=== PATIENT | female | born 1960 | race Caucasian/White ===

== ENCOUNTER 2019-02-01 12:28 | Emergency (ER) | payer OTHER ==
[2019-02-01] MEDS ORDERED: Sodium Chloride 0.9% 10 ML Syringe FLUSH PRN (13:34)
[2019-02-01] MEDS ORDERED: Sodium Chloride 0.9% 1,000 ML IV ONE (13:35)
[2019-02-01] MEDS ORDERED: Ampicillin/Sulbactam Na 3 GM in Sodium Chloride 0.9% 100 ML IV ONE (13:36)
[2019-02-01] MEDS ORDERED: Ketorolac 30 MG/ML SDV IVPUSH ONE (13:36)
--- NOTE | 2019-02-01 13:58 | EDM.PDOC ---
ED HPI GENERAL MEDICAL PROBLEM - General Chief Complaint: Bite:Animal, Insect Stated Complaint: DOG BITES RIGHT HAND Time Seen by Provider: 02/01/19 13:00 Source of Information: Reports: Patient History Limitations: Reports: No Limitations - History of Present Illness INITIAL COMMENTS - FREE TEXT/NARRATIVE: Tamela is a 58 year old female who presents to the ED today with increasing right hand swelling and pain since being bit by her own dog to right hand yesterday. Patient is right hand dominant. She denies any fever/chills/body aches or other complaints. DT is up to date. Patient denies any other injuries. Onset: Gradual Duration: Hour(s): (16) 7 Pain Score (Numeric/FACES): 7 - Related Data Allergies Allergy/AdvReac Type Severity Reaction Status Date / Time No Known Allergies Allergy Verified 02/01/19 13:04 Home Meds: Home Meds Aspirin 81 mg PO DAILY 02/01/19 [History] amLODIPine Besylate [Amlodipine Besylate] 5 mg PO DAILY 02/01/19 [History] hydroCHLOROthiazide [Hydrochlorothiazide] 25 mg PO DAILY 02/01/19 [History] Past Medical History Cardiovascular History: Reports: Hypertension Musculoskeletal History: Reports: Back Pain, Chronic - Past Surgical History Female Surgical History: Reports: Hysterectomy Social & Family History - Tobacco Use Smoking Status *Q: Current Every Day Smoker Years of Tobacco use: 35 Packs/Tins Daily: 1 ED ROS GENERAL - Review of Systems Review Of Systems: ROS reveals no pertinent complaints other than HPI. ED EXAM, ANIMAL BITE - Physical Exam Exam: See Below Exam Limited By: No Limitations General Appearance: Alert, WD/WN, No Apparent Distress Respiratory/Chest: No Respiratory Distress Cardiovascular: Normal Peripheral Pulses, Regular Rate, Rhythm Back Exam: Normal Inspection Extremities: Normal Inspection Neurological: Alert, Oriented, CN II-XII Intact Psychiatric: Normal Affect Skin Exam: Other (Right hand is edematous, 1 cm bite analilia to right dorsal aspect , along 4th mid metacarpal region, another 1 cm puncture bite analilia to first metacarpal region on bennett aspect,no drainage, strength in all 5 digits intact , unable to make a fist. cap refill intact) Lymphatic: No Adenopathy Course - Vital Signs Last Recorded V/S: Last Vital Signs Temp 35.8 C 02/01/19 13:10 Pulse 72 02/01/19 15:06 Resp 12 02/01/19 15:06 BP 138/78 02/01/19 15:06 Pulse Ox 97 02/01/19 15:06 Tamela is a 58 year old female, presents today with a dog bite to right hand that occurred last night her own dog who is vaccinated. Please refer to HPI and focused exam. Patient hemodynamically stable here, afebrile, blood work with normal white count, elevated neutrophil count, elevated CRP, potassium low at 3. Replaced with oral. Patient given Toradol for pain, some relief, more so with Dilaudid, given IV Unasyn here. Since patient's arrival swelling has improved as has ROM with ability to make more of a fist, feel appropriate to send home on Augmentin and [place] for pain with low threshold for return which I discussed with patient and her in detail. Patient to follow up with PCP later this week if improving. Patient discharged in stable condition. Of note, xray of hand with no acute osseous abnormality. - Orders/Labs/Meds Orders: Active Orders 24 hr Category Date Time Status Peripheral IV Care [RC] . DIRECTED Care 02/01/19 13:35 Active Sodium Chloride 0.9% [Saline Flush] Med 02/01/19 13:34 Active 10 ml FLUSH ASDIRECTED PRN Peripheral IV Insertion Adult [OM.PC] Routine Oth 02/01/19 13:34 Ordered Medication Orders Sodium Chloride (Saline Flush) 10 ml FLUSH ASDIRECTED PRN PRN Reason: Keep Vein Open Labs: Laboratory Tests 02/01/19 02/01/19 Range/Units 13:35 13:58 WBC 9.1 (4.5-11.0) K/uL RBC 4.68 (3.30-5.50) M/uL Hgb 14.7 (12.0-15.0) g/dL Hct 44.1 (36.0-48.0) % MCV 94 (80-98) fL MCH 31 (27-31) pg MCHC 33 (32-36) % Plt Count 181 (150-400) K/uL Neut % (Auto) 67 H (36-66) % Lymph % (Auto) 21 L (24-44) % [place] % (Auto) 9 H (2-6) % Eos % (Auto) 3 (2-4) % Baso % (Auto) 1 (0-1) % Sodium 140 (140-148) mmol/L Potassium 3.0 L (3.6-5.2) mmol/L Chloride 100 (100-108) mmol/L Carbon Dioxide 25 (21-32) mmol/L Anion Gap 18.0 H (5.0-14.0) mmol/L BUN 13 (7-18) mg/dL Creatinine 0.7 (0.6-1.0) mg/dL Est Cr Clr Drug Dosing 93.78 mL/min Estimated GFR (MDRD) > 60 (>60) Glucose 103 (74-106) mg/dL Calcium 8.8 (8.5-10.1) mg/dL Total Bilirubin 0.4 (0.2-1.0) mg/dL AST 33 (15-37) U/L ALT 51 (12-78) U/L Alkaline Phosphatase 82 (46-116) U/L C-Reactive Protein 2.30 H (0.0-0.3) mg/dL Total Protein 7.0 (6.4-8.2) g/dL Albumin 3.8 (3.4-5.0) g/dL Globulin 3.2 (2.3-3.5) g/dL Albumin/Globulin Ratio 1.2 (1.2-2.2) Meds: Medications Generic Name Dose Route Start Last Admin Trade Name Freq PRN Reason Stop Dose Admin Sodium Chloride 10 ml 02/01/19 13:34 Saline Flush FLUSH ASDIRECTED PRN Keep Vein Open Discontinued Medications Generic Name Dose Route Start Last Admin Trade Name Freq PRN Reason Stop Dose Admin Hydromorphone HCl 0.5 mg 02/01/19 15:09 02/01/19 15:20 Dilaudid IVPUSH 02/01/19 15:10 0.5 mg ONETIME ONE Administration Ampicillin Sodium/Sulbactam 100 mls @ 200 mls/hr 02/01/19 13:36 02/01/19 14: 28 Sodium 3 gm/ Sodium Chloride IV 02/01/19 14:05 200 mls/hr ONETIME ONE Administration Sodium Chloride 1,000 mls @ 1,000 mls/hr 02/01/19 13:35 02/01/19 14:26 Normal Saline IV 02/01/19 14:34 1,000 mls/hr .BOLUS ONE Administration Ketorolac Tromethamine 30 mg 02/01/19 13:36 02/01/19 14:26 Toradol IVPUSH 02/01/19 13:37 30 mg ONETIME ONE Administration Potassium Chloride 40 meq 02/01/19 14:41 02/01/19 15:05 Klor-Con M20 PO 02/01/19 14:42 40 meq ONETIME ONE Administration Departure - Departure Time of Disposition: 16:30 Disposition: Home, Self-Care 01 Condition: Good Clinical Impression: Cellulitis Qualifiers: Site of cellulitis: extremity Site of cellulitis of extremity: upper extremity Laterality: right Qualified Code(s): L03.113 - Cellulitis of right upper limb Dog bite Qualifiers: Encounter type: initial encounter Qualified Code(s): W54.0XXA - Bitten by dog, initial encounter - Discharge Information Instructions: Cellulitis, Adult, [id number], Animal Bite, Adult, [id number] Referrals: PCP,None [Primary Care Provider] - Forms: ED Department Discharge Additional Instructions: Start Augmentin at 6 PM and take as directed. Ibuprofen 600 mg every 6 hours for pain and swelling. Percocet for severe pain, this is a narcotic, do not drive if you take it. Return with any worsening symptoms. If you continue to improve follow up in clinic for re-evaluation next week. I would recommend yogurt or a good probiotic such as Culturelle (can be found over the counter) to prevent stomach upset and diarrhea from the antibiotic. - My Orders Last 24 Hours: My Active Orders 02/01/19 13:34 Sodium Chloride 0.9% [Saline Flush] 10 ml FLUSH ASDIRECTED PRN Peripheral IV Insertion Adult [OM.PC] Routine 02/01/19 13:35 Peripheral IV Care [RC] . DIRECTED - Assessment/Plan Last 24 Hours: My Active Orders 02/01/19 13:34 Sodium Chloride 0.9% [Saline Flush] 10 ml FLUSH ASDIRECTED PRN Peripheral IV Insertion Adult [OM.PC] Routine 02/01/19 13:35 Peripheral IV Care [RC] . DIRECTED
[2019-02-01] MEDS ORDERED: Potassium Chloride 20 MEQ Tab.ER PO ONE (14:41)
--- NOTE | 2019-02-01 14:44 | CRLCR ---
HISTORY: Dog bite. Swelling. Limited range of motion. TECHNIQUE: Right hand 3 views. COMPARISON: None. FINDINGS: Soft tissue swelling in the dorsum of the hand. No erosions. 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 Mild degenerative arthrosis of the 1st carpometacarpal joint. Degenerative arthrosis at multiple IP joints, moderately advanced at the index finger DIP joint. IMPRESSION: Soft tissue swelling. No acute bone abnormality. Dictated by Petey Larson MD @ Feb 01 2019 2:41PM Signed by Dr. Petey Larson @ Feb 01 2019 2:43PM
[2019-02-01] MEDS ORDERED: HYDROmorphone 0.5 MG/0.5 ML Syringe IVPUSH ONE (15:09)
== END 2019-02-01 16:10 | disposition home or self-care (01) ==
LOC: JP.ED 12:28
DX: S61.451A Open bite of right hand, initial encounter (principal); L03.113 Cellulitis of right upper limb; I10 Essential (primary) hypertension; F17.210 Nicotine dependence, cigarettes, uncomplicated; Z79.82 Long term (current) use of aspirin; Z79.899 Other long term (current) drug therapy; W54.0XXA Bitten by dog, initial encounter
CPT/HCPCS: 36415; 73130; 80053; 85025; 86140; 96361; 96365; 96375; 99283; A9270; J0295; J1170; J1885; J7030

== ENCOUNTER 2019-02-03 10:04 | Emergency (ER) | payer OTHER ==
[2019-02-03] MEDS ORDERED: cefTRIAXone 1 GM Vial IM ONE (11:11)
--- NOTE | 2019-02-03 11:14 | EDM.PDOC ---
ED HPI GENERAL MEDICAL PROBLEM - General Chief Complaint: Wound Recheck Stated Complaint: DOG BITE RIGHT HAND (SEEN ER ON SUNDAY) Time Seen by Provider: 02/03/19 10:50 Source of Information: Reports: Patient History Limitations: Reports: No Limitations - History of Present Illness INITIAL COMMENTS - FREE TEXT/NARRATIVE: Alert 58-year-old right-handed female presents to ER for recheck of animal bite involving her hand. Patient had animal bite 4 days ago she was seen in the ER 2 days ago regarding the bite was noted to have an infection secondary to animal bite right hand. Imaging of the right hand was completed and reviewed by myself along with reviewing radiology report no fractures or foreign body noted. Patient was given a dose of IV antibiotics and started on Augmentin. Anti- inflammatories and pain medications offered. Patient states the redness and swelling in the dorsum of the hand is significantly improved. She was confused regarding the drainage as it was noted that if she had increased drainage or pus from the rounder increased redness she should return to the ER for evaluation. Patient states the redness has extended beyond her wrist and is now a third of the way up her dorsal forearm. Patient states the swelling is significant improved involving her hand. Drainage is then occurring. She's been taking her medications as directed without any difficulties. Patient denies any fever, chills or sweats or systemic symptoms. Patient is fairly confused regarding her wound care treatment and management she's been applying ice and states that it does not seem to be helping her swelling and pain. Right Hand Pain Score (Numeric/FACES): 5 - Related Data Allergies Allergy/AdvReac Type Severity Reaction Status Date / Time No Known Allergies Allergy Verified 02/03/19 10:26 Home Meds: Home Meds Aspirin 81 mg PO DAILY 02/01/19 [History] amLODIPine Besylate [Amlodipine Besylate] 5 mg PO DAILY 02/01/19 [History] hydroCHLOROthiazide [Hydrochlorothiazide] 25 mg PO DAILY 02/01/19 [History] Acetaminophen/oxyCODONE [Percocet 325-5 MG] 1 tab PO Q6H 02/03/19 [History] Amoxicillin/Clavulanate K [Augmentin 875-125 MG] 1 tab PO BID 02/03/19 [History] Naproxen 1 tab PO ASDIRECTED 02/03/19 [History] Past Medical History Cardiovascular History: Reports: Hypertension Musculoskeletal History: Reports: Back Pain, Chronic - Past Surgical History Female Surgical History: Reports: Hysterectomy Social & Family History - Tobacco Use Smoking Status *Q: Light Tobacco Smoker Years of Tobacco use: 35 Packs/Tins Daily: 0.5 - Recreational Drug Use Recreational Drug Use: No ED ROS GENERAL - Review of Systems Review Of Systems: ROS reveals no pertinent complaints other than HPI. ED EXAM, SKIN/RASH Exam: See Below Exam Limited By: No Limitations General Appearance: Alert, WD/WN, No Apparent Distress Ears: Normal External Exam, Hearing Grossly Normal Nose: Normal Inspection, Normal Mucosa Throat/Mouth: Normal Inspection, Normal Lips, Normal Voice, No Airway Compromise Head: Normocephalic Neck: Normal Inspection, Supple, Full Range of Motion Respiratory/Chest: No Respiratory Distress, Lungs Clear, Normal Breath Sounds Cardiovascular: Normal Peripheral Pulses, Regular Rate, Rhythm Extremities: Normal Inspection (Left Hand Normal Exam), Normal Capillary Refill , Limited Range of Motion (Right Decrease ROM of fingers due to swelling and pain. ), Increased Warmth (Right Hand: swelling with 4-5 open draining seropurulent puncture wounds. Point of most severe pain involving puncture wound dorsum right hand between 4-5 Metacarpal bones. No increased pain with ROM right hand fingers and wrist ) Neurological: Alert, Oriented, CN II-XII Intact, Normal Cognition, Memory Loss Recent Events Psychiatric: Normal Affect, Normal Mood Location, Skin: Upper Extremity, Right Associated features: Warmth, Tenderness, Swelling, Induration, Inflammation, Weeping Course - Vital Signs Last Recorded V/S: Last Vital Signs Temp 34.7 C L 02/03/19 10:23 Pulse 68 02/03/19 11:23 Resp 13 02/03/19 11:23 BP 115/80 02/03/19 11:23 Pulse Ox 96 02/03/19 11:23 - Orders/Labs/Meds Orders: Active Orders 24 hr Category Date Time Status Splinting [RC] ASDIRECTED Care 02/03/19 11:11 Active Meds: Medications Discontinued Medications Generic Name Dose Route Start Last Admin Trade Name Freq PRN Reason Stop Dose Admin Ceftriaxone Sodium 1 gm/ 0 gm 02/03/19 11:30 02/03/19 11:34 Lidocaine HCl 2.1 ml IM 02/03/19 11:31 1 inj ONETIME ONE Administration Departure - Departure Time of Disposition: 12:00 Disposition: Home, Self-Care 01 Condition: Good Clinical Impression: Cellulitis Qualifiers: Site of cellulitis: extremity Site of cellulitis of extremity: upper extremity Laterality: right Qualified Code(s): L03.113 - Cellulitis of right upper limb Dog bite Qualifiers: Encounter type: initial encounter Qualified Code(s): W54.0XXA - Bitten by dog, initial encounter - Discharge Information Instructions: Cellulitis, Adult, Animal Bite, Adult Referrals: PCP,None [Primary Care Provider] - Forms: ED Department Discharge - Problem List & Annotations (1) Cellulitis SNOMED Code(s): 537876635 Code(s): L03.90 - CELLULITIS, UNSPECIFIED Status: Acute Current Visit: Yes Qualifiers: Site of cellulitis: extremity Site of cellulitis of extremity: upper extremity Laterality: right Qualified Code(s): L03.113 - Cellulitis of right upper limb (2) Dog bite SNOMED Code(s): 303903452, 080141761 Code(s): W54.0XXA - BITTEN BY DOG, INITIAL ENCOUNTER Status: Acute Current Visit: Yes Qualifiers: Encounter type: initial encounter Qualified Code(s): W54.0XXA - Bitten by dog, initial encounter - My Orders Last 24 Hours: My Active Orders 02/03/19 11:11 Splinting [RC] ASDIRECTED - Assessment/Plan Last 24 Hours: My Active Orders 02/03/19 11:11 Splinting [RC] ASDIRECTED Plan: 1. Continue Augmentin as directed with food until gone. 2. Ibuprofen 600-800mg every 6 hours with food for pain and swelling. 3. Leave splint on during the day and night per comfort to prevent spread of infection into deep spaces of hand. 4. Remove splint 2-3 times daily and soak in warm soapy water or warm water with Epsom salt to promote drainage of puncture wounds and healing. 5. If wounds are drainage apply topical bacitracin, Aquaphor or Vaseline and bandage to prevent worsening or reinfection due to open wounds. 6. Tylenol as needed for mild pain or Percocet (previously prescribed) for moderate to severe pain. 7. Redness, swelling and pain should be significantly improved in 5 days and small scabs in 7-10 days. 8. Return to ER or Local PCP if not complete resolved or improving as expected, fever, increased pain or swelling. 9. Probiotic can be started upon completion of antibiotic to restore normal gut barbara. THE DISCHARGE INSTRUCTIONS ARE INTENDED A COMPLEMENT TO AND NOT A REPLACEMENT FOR THE VERBAL INSTRUCTIONS THAT I HAVE PROVIDED YOU TODAY. AFTER GOING OVER THE PLAN OF CARE AND PROVIDING YOU WITH THE VERBAL INSTRUCTIONS. YOU HAVE HAD THE OPPORTUNITY TO ASK FURTHER QUESTIONS AND TO CLARIFY UNCERTAINTIES. THANK YOU FOR ALLOWING US TO ASSIST WITH YOUR MEDICAL CONCERNS AND NEEDS. Puncture Wound What is a puncture wound? A puncture wound is any wound caused by something sharp and narrow that stabs through the skin and into the soft tissue. Common examples of puncture wounds are animal bites and wounds from stepping on a nail or toothpick. How can I take care of myself? Remove foreign bodies that you can easily see, but do not probe in the wound. These are things like pieces of broken wood or metal, glass, dirt--anything that got into the wound when you got hurt. Next, wash the wound as thoroughly as possible with warm water and soap. Put pressure on the wound with a bandage or clean cloth until the bleeding stops. When the bleeding has stopped, keep the wound covered with a clean bandage. Change the bandage each day or whenever it becomes wet or dirty until the skin has healed. This usually takes about a week for minor injuries. Do I need to go to see my healthcare provider or go to the emergency department ? See your healthcare provider or go to an urgent care center or the emergency department the same day if: The wound does not stop bleeding after you have put pressure on it for 10 minutes. The wound is deep, large, or jagged or it gapes open. The wound is on the face and you are concerned about scarring. The area around the wound feels numb. The wound is from an animal or human bite. There is any possibility that some part of what punctured you is still in the wound -- a broken piece of glass, metal, or wood, for example. The wound either went through your shoe or was dirty. It has been more than 5 years since your last tetanus shot. You may need to have your provider clean the wound and possibly close it with tape, adhesive, or stitches. You may need antibiotics to prevent infection. You may also need a tetanus shot. Tetanus is a serious infection that is also known as lockjaw. If it has been more than 5 years since your last shot, you may need a shot. Tetanus vaccine is normally given every 10 years, but you may be due for another shot if you have a dirty wound and it has been more than 5 years since your last shot. What should I watch for? Watch the wound for signs of infection over the next few days. See your healthcare provider or go to the emergency department right away if: The skin is becoming redder or more painful. The wound becomes swollen. You have red streaks from the wound. Pus is draining from the wound. The wound does not heal. Written by Javy Anguiano MD Discharge Instructions Cellulitis Cellulitis is an infection of the skin that occurs when bacteria enter the skin. Symptoms are generally redness, swelling, warmth and pain. Your infection appeared to be appropriate to treat at home with antibiotics. However , sometimes your infection may be worse than it seemed at first, or may worsen with time. If you have new or worse symptoms, you may need to be seen again in the Emergency Department or by your primary provider. Please follow-up as instructed by your provider today. Return to the clinic or Emergency Department if: The redness, pain, or swelling gets a lot worse. If the red area was marked , return if it is red significantly beyond the marked area. You are unable to get your antibiotics, or are vomiting (throwing up) these pills, or you cannot take them. You are feeling more ill, weak or lightheaded. You start to run a new fever (temperature >101F). Anything else about the infection worries or concerns you. Treatment: Start your antibiotics right away, and take them as prescribed. Be sure to finish the whole prescription, even if you are better. Apply a heating pad, warm packs, or warm water soaks to the infected area for 15 minutes at a time, at least 3 times a day. Do not use a heating pad on your feet or legs if you have diabetes. Do not sleep with a heating pad on, since this can cause najera or skin injury. Rest your injured area for at least 1-2 days. After that you may start using your extremity again as long as there is not too much pain. Raise the injured area above the level of your heart as much as possible in the first 1-2 days. Tylenol (acetaminophen), Motrin (ibuprofen), or Advil (ibuprofen) may help may help reduce pain and fever and may help you feel more comfortable. Be sure to read and follow the package directions, and ask your provider if you have questions. If you were given a prescription for medicine here today, be sure toread all of the information (including the package insert) that comes with your prescription. This will include important information about the medicine, its side effects, and any warnings that you need to know about. The pharmacist who fills the prescription can provide more information and answer questions you may have about the medicine. If you have questions or concerns that the pharmacist cannot address, please call or return to the Emergency Department. Remember that you can always come back to the Emergency Department if you are not able to see your regular provider in the amount of time listed above, if you get any new symptoms, or if there is anything that worries you.
[2019-02-03] MEDS: cefTRIAXone 1 GM, Lidocaine 1% 2.1 ML IM ONE ×4 (11:31→11:34)
== END 2019-02-03 12:30 | disposition home or self-care (01) ==
LOC: JP.ED 10:04
DX: L03.113 Cellulitis of right upper limb (principal); I10 Essential (primary) hypertension; F17.210 Nicotine dependence, cigarettes, uncomplicated; Z79.82 Long term (current) use of aspirin; Z79.899 Other long term (current) drug therapy; W54.0XXA Bitten by dog, initial encounter
CPT/HCPCS: 96372; 99283; J0696; J2001